=== PATIENT | male | born 1985 | race Caucasian/White ===

== ENCOUNTER 2018-03-12 14:47 | Emergency (ER) | payer OTHER ==
[2018-03-12] MEDS ORDERED: TETANUS/DIPHTHERIA/PERTUSSIS 0.5 ML SYRINGE IM ONE (15:38)
[2018-03-12] MEDS ORDERED: BUFFERED LIDOCAINE 10 ML SYRINGE ONE (15:39)
--- NOTE | 2018-03-12 15:39 | ED Physician Documentation ---
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.) Review of Systems Constitutional: denies: Fever, Chills Nose: reports: Reviewed and negative Cardiac: reports: Reviewed and negative Respiratory: reports: Reviewed and negative PD PAST MEDICAL HISTORY - Past Medical History Past Medical History: No - Past Surgical History Past Surgical History: No - Present Medications Home Medications: Ambulatory Orders Medication Instructions Recorded Confirmed No Known Home Medications 03/12/18 03/12/18 - Allergies Allergies/Adverse Reactions: Allergies Allergy/AdvReac Type Severity Reaction Status Date / Time No Known Drug Allergies Allergy Verified 03/12/18 15:06 - Social History Does the pt smoke?: No Smoking Status: Never smoker Does the pt drink ETOH?: No Does the pt have substance abuse?: No - Immunizations Immunizations are current?: No PD ED PE NORMAL - Vitals Vital signs reviewed: Yes - General General: Alert and oriented X 3, No acute distress - Extremities Extremities: Other (On the pulp of the left pinky finger there is a 1 cm deep laceration that abuts but does not seem to affect the nail.) - Neuro Neuro: Alert and oriented X 3, Normal speech Results - Vitals Vitals: Vital Signs - 24 hr 03/12/18 15:04 Temperature 36.7 C Heart Rate 79 Respiratory 16 Rate Blood Pressure 117/78 O2 Saturation 100 Oxygen O2 Source Room air Procedures - Laceration (location) L 5th finger Length in cm: 1 Wound type: Curved, Stellate, Superficial Anesthesia: Lidocaine 1%, With bicarb Wound Preparation: Irrigated copiously NS Skin layer closure: Nylon, Interrupted, Size #-0 - enter number (4-0), Sutures - enter # (4) Other: Tetanus booster given Complexity: Simple Departure - Departure Disposition: 01 Home, Self Care Clinical Impression: Laceration Condition: Good Record reviewed to determine appropriate education?: Yes Instructions: ED Laceration Hand Comments: Come back for any signs of infection which would include: Redness, swelling, drainage, increased pain, or fevers. Follow-up with your physician in About 14 days for suture removal. Forms: Activity restrictions
[2018-03-12 16:25] VITALS: BP 115/87
== END 2018-03-12 16:33 | disposition home or self-care (01) ==
LOC: ED 14:47
DX: S61.217A Laceration without foreign body of left little finger without damage to nail, initial encounter (principal); W29.8XXA Contact with other powered hand tools and household machinery, initial encounter; Y93.H3 Activity, building and construction; Y92.89 Other specified places as the place of occurrence of the external cause; Y99.0 Civilian activity done for income or pay
CPT/HCPCS: 1040M; 12001; 90471; 90715; 99282; 99283

== ENCOUNTER 2022-10-27 16:58 | Outpatient (CLI) | payer BC ==
--- NOTE | 2022-10-28 10:46 | XRAY Report ---
PROCEDURE: Lumbar Spine 2 View INDICATIONS: LOW BACK PAIN TECHNIQUE: 2 views of the lumbar spine were acquired. COMPARISON: None. FINDINGS: Bones: 5 [id number] vertebrae are present. There is normal bony alignment. No vertebral body compression fractures. No suspicious bony lesions. Mild multilevel facet hypertrophy. Soft tissues: Overlying bowel gas pattern is normal. No suspicious soft tissue calcifications. IMPRESSION: Mild multilevel spondylosis. MRI could be performed for further evaluation if indicated clinically. Reviewed by: Marcel Pierce MD on 10/28/2022 10:45 AM PDT Approved by: Marcel Pierce MD on 10/28/2022 10:45 AM PDT Station ID: [id number]
== END 2022-10-27 16:59 | disposition home or self-care (01) ==
LOC: DI 16:58
PROVIDERS: ATTEND Physician Assistant
DX: M47.816 Spondylosis without myelopathy or radiculopathy, lumbar region (principal)

== ENCOUNTER 2023-10-12 19:08 | Emergency (ER) | payer BC ==
[2023-10-12 19:20] VITALS: BP 149/99; O2SAT 99
--- NOTE | 2023-10-12 19:57 | ED Physician Documentation ---
PD HPI BACK PAIN - Stated complaint Stated Complaint: BACK PX - Chief complaint Chief Complaint: Back Pain - Additional information Additional information: 37-year-old male with history of sciatica no other pertinent past medical history presents emergency department for what he describes and is concerned of a sciatica flare on his left side. 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 No incontinence of bowel or bladder no urinary retention no history of back surgeries no history of IV drug use no nausea or vomiting. PD PAST MEDICAL HISTORY - Past Medical History Past Medical History: Yes Cardiovascular: None Respiratory: None Neuro: None Endocrine/Autoimmune: None GI: None : None HEENT: None Psych: None Musculoskeletal: Chronic back pain Derm: None - Past Surgical History Past Surgical History: No - Present Medications Home Medications: Ambulatory Orders Medication Instructions Recorded Confirmed Cyclobenzaprine [Flexeril] 10 mg PO TID PRN 6 Days #20 tablet 10/12/23 - Allergies Allergies/Adverse Reactions: Allergies Allergy/AdvReac Type Severity Reaction Status Date / Time No Known Drug Allergies Allergy Verified 10/12/23 19:13 - Social History Does the pt smoke?: No Smoking Status: Never smoker Does the pt drink ETOH?: No Does the pt have substance abuse?: No - Immunizations Immunizations are current?: Yes PD ED PE NORMAL - Vitals Vital signs reviewed: Yes - General General: Alert and oriented X 3, No acute distress, Well developed/nourished - Extremities Extremities: No deformity, No edema, No calf tenderness / cord - Neuro Neuro: Alert and oriented X 3, pan pusher 2-12 intact, No motor deficit, No sensory deficit, Normal speech Eye Opening: Spontaneous Motor: Obeys Commands Verbal: Oriented GCS Score: 15 - Psych Psych: Normal mood, Normal affect - Free text exam Free text exam: Neck and back are without deformity, external skin changes, or signs of trauma. Curvature of the cervical, thoracic, and lumbar spine are within normal limits. Bony features of the shoulders and hips are of equal height bilaterally. Posture is upright, gait is smooth, steady, and within normal limits. No tenderness noted on palpation of the spinous processes. Spinous processes are midline. Cervical, thoracic, and lumbar paraspinal muscles are not tender and are without spasm. discomfort is noted with flexion, extension, and yaye-ev-[id number] rotation of the cervical spine, full range of motion is noted. Full range of motion including flexion, extension, and [id number]-[id number] rotation of the thoracic and lumbar spine are noted but with discomfort Straight leg raise test is positive for left lower extremity, negative for right. Sensation to the upper and lower extremities is normal bilaterally. No clonus is noted. Lead Vulcanizing Operator strength is normal bilaterally. Dorsi/plantar flexion is normal bilaterally. Results - Vitals Vitals: Vital Signs - 24 hr 10/12/23 19:13 Temperature 36.7 C Heart Rate 96 Respiratory 18 Rate Blood Pressure 149/99 H O2 Saturation 99 Oxygen O2 Source Room air PD Medical Decision Making - ED course ED course: This patient presents with back pain most consistent with sciatica. Differential diagnoses includes lumbago versus musculoskeletal spasm / strain versus sciatica. Most likely sciatica as straight leg raise test was positive. No back pain red flags on history or physical. Presentation not consistent with malignancy (lack of history of malignancy, lack of B symptoms), fracture (no trauma, no bony tenderness to palpation), cauda equina (no bowel or urinary i ncontinence/retention, no saddle anesthesia, no distal weakness), AAA, viscus perforation, osteomyelitis or epidural abscess (no IVDU, vertebral tenderness), renal colic, pyelonephritis (afebrile, no CVAT, no urinary symptoms). Given the clinical picture, no indication for imaging at this time. Patient told to establish care with primary care provider soon as possible for possible outpatient MRI he was given a prescription of cyclobenzaprine and given first dose here in the emergency department as well as a take-home pack. Patient taught signs and symptoms of when to return to the emergency department all questions answered patient safe for discharge. Departure - Departure Disposition: 01 Home, Self Care Clinical Impression: Sciatica Instructions: ED Back Care Tips, ED Sciatica Prescriptions: Cyclobenzaprine [Flexeril] 10 mg PO TID PRN 6 Days #20 tablet PRN Reason: Spasms Comments: Thank you for trusting us with your care and I am so sorry that you have been experiencing this sciatica back pain for so long. I would strongly encourage you to get established with a primary care provider soon as possible as I would recommend pursuing an outpatient MRI. We have given you a prescription of cyclobenzaprine here in the emergency department to help with your back pain and I have sent a prescription of cyclobenzaprine to the [facility] pharmacy. You can call [facility] in [place] to see if they are taking any new patients the provider was telling about is Romie May, again though I would just recommend following up with whoever can get you in quickest. Please come back to the emergency department if you are starting to develop any incontinence of bowel or bladder. I would take at 1000 mg of Tylenol every 8 hours and 500 mg of Aleve every 12 hours for ongoing back pain you can take the Flexeril medication up to 3 times a day as needed for your back pain. Discharge Date/Time: 10/12/23 20:32
[2023-10-12] MEDS: ACETAMINOPHEN 500 MG TABLET PO STA (20:12)
[2023-10-12] MEDS: CYCLOBENZAPRINE 10 MG Prepack 2 PO PRN (20:12)
[2023-10-12] MEDS: CYCLOBENZAPRINE 10 MG TABLET PO STA (20:12)
== END 2023-10-12 20:32 | disposition home or self-care (01) ==
LOC: ED 19:08
DX: M54.42 Lumbago with sciatica, left side (principal)
CPT/HCPCS: 99283; A9270

== ENCOUNTER 2023-12-07 08:40 | Outpatient (CLI) | payer BC | END 2023-12-07 08:41 | disposition home or self-care (01) | LOC: CAM 08:40 | DX: M54.50 Low back pain, unspecified (principal); G89.29 Other chronic pain | CPT/HCPCS: 97810; 97811 ==

== ENCOUNTER 2024-01-04 09:26 | Outpatient (CLI) | payer BC | END 2024-01-04 09:27 | disposition home or self-care (01) | LOC: CAM 09:26 | DX: M54.50 Low back pain, unspecified (principal); G89.29 Other chronic pain | CPT/HCPCS: 97810; 97811 ==

== ENCOUNTER 2024-01-11 09:25 | Outpatient (CLI) | payer BC | END 2024-01-11 09:26 | disposition home or self-care (01) | LOC: CAM 09:25 | DX: M54.50 Low back pain, unspecified (principal); G89.29 Other chronic pain | CPT/HCPCS: 97810; 97811 ==

== ENCOUNTER 2024-01-18 09:25 | Outpatient (CLI) | payer BC | END 2024-01-18 09:26 | disposition home or self-care (01) | LOC: CAM 09:25 | DX: M54.50 Low back pain, unspecified (principal); G89.29 Other chronic pain | CPT/HCPCS: 97810; 97811 ==